=== PATIENT | male | born 1935 | race African-American/Black ===

== ENCOUNTER 2021-08-15 08:48 | Emergency (ER) | payer BC, MEDICARE, OTHER ==
[~2021-08-15] VITALS: Ht 175.3 cm; Wt 68.0 kg
[2021-08-15] MEDS ORDERED: CLONIDINE 0.1MG TABLET PO ONE (09:30)
[2021-08-15 10:18] LABS: EOSINOPHILS % 5.5 % (0.0-5.0); HEMATOCRIT. 30.1 % (42.0-52.0); HEMOGLOBIN. 9.8 g/dL (14.0-18.0); LYMPHOCYTES % 20.8 % (20.0-50.0); MEAN CORPUSCULAR HEMOGLOBIN 28.9 pg (28.0-32.0); MEAN PLATELET VOLUME 7.4 fl (7.4-10.4); MONOCYTES % 7.9 % (2.0-8.0); NEUTROPHILS % 64.8 % (40.0-76.0); PLATELET 234 x1000/uL (130-400); RED BLOOD CELL COUNT 3.39 mill/uL (4.7-6.1); RED CELL DISTRIBUTION WIDTH 14.7 % (11.6-14.6)
[2021-08-15 10:47] LABS: CHLORIDE 113 mEq/L (98-107)
[2021-08-15 11:59] VITALS: BP 186/74
== END 2021-08-15 11:50 | disposition home or self-care (01) ==
LOC: ER 08:48
DX: I10 Essential (primary) hypertension (principal); D64.9 Anemia, unspecified
CPT/HCPCS: 36415; 80053; 84484; 85025; 93005; 99285

== ENCOUNTER 2021-08-20 09:21 | Emergency (ER) | payer OTHER ==
[~2021-08-20] VITALS: Ht 175.3 cm; Wt 75.0 kg
[2021-08-20 10:25] LABS: BASOPHILS % 1.4 % (0.0-2.0); EOSINOPHILS % 4.9 % (0.0-5.0); HEMATOCRIT. 31.1 % (42.0-52.0); HEMOGLOBIN. 10.2 g/dL (14.0-18.0); LYMPHOCYTES % 20.3 % (20.0-50.0); MEAN CORPUSCULAR HEMOGLOBIN 29.1 pg (28.0-32.0); MEAN PLATELET VOLUME 7.8 fl (7.4-10.4); MONOCYTES % 6.4 % (2.0-8.0); PLATELET 243 x1000/uL (130-400); RED CELL DISTRIBUTION WIDTH 14.9 % (11.6-14.6)
[2021-08-20 10:31] LABS: CHLORIDE 110 mEq/L (98-107)
[2021-08-20] MEDS ORDERED: LOSARTAN POTASSIUM 100 MG TABLET PO SCH (12:30)
[2021-08-20] MEDS ORDERED: ONDANSETRON HCL 4MG/2ML INJ IV PRN (12:30)
[2021-08-20] MEDS ORDERED: HYDRALAZINE HCL 100MG TABLET PO NR (12:30)
[2021-08-20] MEDS ORDERED: ACETAMINOPHEN 325MG TABLET PO PRN (12:30)
[2021-08-20 14:40] VITALS: BP 154/76
[2021-08-20] MEDS ORDERED: HYDRALAZINE HCL 100MG TABLET PO SCH (21:00)
== END 2021-08-20 14:30 | disposition left against medical advice (07) ==
LOC: ER 09:21 → EDBEDREQTM 11:34 → EDBEDREQ 11:34 → CANRESERV 13:03 → ENRESERV 13:03 → ER 14:30 → CANBEDREQ 14:44
DX: I16.0 Hypertensive urgency (principal); G90.8 Other disorders of autonomic nervous system; E87.8 Other disorders of electrolyte and fluid balance, not elsewhere classified; D64.9 Anemia, unspecified; E78.00 Pure hypercholesterolemia, unspecified
CPT/HCPCS: 36415; 71045; 80053; 84484; 85025; 93005; 99285

== ENCOUNTER 2021-11-01 10:28 | Inpatient (IN) | payer OTHER ==
[~2021-11-01] VITALS: Ht 177.8 cm; Wt 64.0 kg
[~2021-11-01 10:28] MED LIST: AMLO10TA4 PO; ATOR80TA PO; HYDR-4134 PO
[2021-11-01] MEDS ORDERED: SODIUM CHLORIDE 0.9% 500 ML IV ONE (11:00)
[2021-11-01] MEDS ORDERED: HYDRALAZINE HCL 25MG TABLET PO ONE (11:45)
[2021-11-01] MEDS ORDERED: AMLODIPINE 10MG TABLET PO ONE (11:45)
[2021-11-01 12:38] LABS: BASOPHILS % 0.9 % (0.0-2.0); EOSINOPHILS % 1.2 % (0.0-5.0); HEMATOCRIT. 27.7 % (42.0-52.0); HEMOGLOBIN. 9.3 g/dL (14.0-18.0); LYMPHOCYTES % 25.2 % (20.0-50.0); MEAN CORPUSCULAR HEMOGLOBIN 28.9 pg (28.0-32.0); MEAN CORPUSCULAR VOLUME 86.2 fL (80.0-94.0); MEAN PLATELET VOLUME 7.8 fl (7.4-10.4); MONOCYTES % 8.3 % (2.0-8.0); NEUTROPHILS % 64.4 % (40.0-76.0); PLATELET 185 x1000/uL (130-400); RED BLOOD CELL COUNT 3.22 mill/uL (4.7-6.1); RED CELL DISTRIBUTION WIDTH 14.5 % (11.6-14.6)
[2021-11-01 12:45] LABS: CHLORIDE 114 mEq/L (98-107)
[2021-11-01] MEDS ORDERED: SODIUM CHLORIDE 0.9% 1,000 ML IV ONE (13:15)
[2021-11-01] MEDS ORDERED: ACETAMINOPHEN 325MG TABLET PO PRN (20:30)
[2021-11-01] MEDS ORDERED: DOCUSATE SODIUM 100MG CAPSULE PO PRN (20:30)
[2021-11-01] MEDS ORDERED: MAGNESIUM/ALUMINUM HYDROXIDE/SIMETHICONE 30ML UDC PO PRN (20:30)
[2021-11-01] MEDS ORDERED: GUAIFENESIN 200MG/10ML SUGAR FREE UDC PO PRN (20:30)
[2021-11-01] MEDS ORDERED: ONDANSETRON HCL 4MG/2ML INJ IV PRN (20:30)
[2021-11-01] MEDS ORDERED: ENOXAPARIN 40MG/0.4ML SYR SUBCUT SCH (21:00)
[2021-11-02 04:35] LABS: BASOPHILS % 1.2 % (0.0-2.0); EOSINOPHILS % 3.4 % (0.0-5.0); HEMATOCRIT. 25.4 % (42.0-52.0); HEMOGLOBIN. 8.4 g/dL (14.0-18.0); LYMPHOCYTES % 27.3 % (20.0-50.0); MEAN CORPUSCULAR HEMOGLOBIN 28.3 pg (28.0-32.0); MEAN CORPUSCULAR VOLUME 85.7 fL (80.0-94.0); MEAN PLATELET VOLUME 8.4 fl (7.4-10.4); MONOCYTES % 8.9 % (2.0-8.0); NEUTROPHILS % 59.2 % (40.0-76.0); PLATELET 175 x1000/uL (130-400); RED BLOOD CELL COUNT 2.96 mill/uL (4.7-6.1); RED CELL DISTRIBUTION WIDTH 14.5 % (11.6-14.6)
[2021-11-02 04:41] LABS: CHLORIDE 113 mEq/L (98-107)
[2021-11-02] MEDS: AMLODIPINE 10MG TABLET PO SCH (08:27)
[2021-11-02] MEDS ORDERED: ASPIRIN 81MG EC TABLET PO SCH (09:00)
[2021-11-02 09:40] VITALS: BP 149/83
[2021-11-02 09:50] VITALS: BP 149/83
[2021-11-02 12:00] VITALS: BP 171/81
[2021-11-02] MEDS: CLONIDINE 0.1MG TABLET PO PRN (12:58)
[2021-11-02] MEDS: SODIUM CHLORIDE 0.45% 1,000 ML IV SCH (15:03)
[2021-11-02 16:00] VITALS: BP 137/79
[2021-11-02 20:00] VITALS: BP 129/69
[2021-11-02] MEDS ORDERED: ENOXAPARIN 30MG/0.3ML SYR SUBCUT SCH (21:00)
[2021-11-02] MEDS ORDERED: ATORVASTATIN CALCIUM 40MG TABLET PO SCH (21:00)
[2021-11-03] VITALS: BP 128/69
[2021-11-03 04:00] VITALS: BP 148/80
[2021-11-03] MEDS: SODIUM CHLORIDE 0.45% 1,000 ML IV SCH (04:05)
[2021-11-03 08:00] VITALS: BP 151/79
[2021-11-03 09:04] LABS: BASOPHILS % 1.2 % (0.0-2.0); EOSINOPHILS % 3.8 % (0.0-5.0); HEMATOCRIT. 28.4 % (42.0-52.0); HEMOGLOBIN. 9.5 g/dL (14.0-18.0); LYMPHOCYTES % 24.3 % (20.0-50.0); MEAN CORPUSCULAR HEMOGLOBIN 28.7 pg (28.0-32.0); MEAN CORPUSCULAR VOLUME 86.2 fL (80.0-94.0); MONOCYTES % 8.5 % (2.0-8.0); NEUTROPHILS % 62.2 % (40.0-76.0); PLATELET 226 x1000/uL (130-400); RED CELL DISTRIBUTION WIDTH 14.2 % (11.6-14.6)
[2021-11-03 09:19] LABS: CHLORIDE 109 mEq/L (98-107)
[2021-11-03] MEDS: AMLODIPINE 10MG TABLET PO SCH (09:32)
[2021-11-03] MEDS: CLONIDINE 0.1MG TABLET PO PRN (09:34)
[2021-11-03 11:52] VITALS: BP 119/68
== END 2021-11-03 15:40 | disposition home or self-care (01) | DRG 683 ==
LOC: ER 10:28 → MICUSO 11-02 06:16 → 6WST 11-02 10:05 → 6EST 11-03 08:30
PROVIDERS: ADMIT Hospitalist; ATTEND Hospitalist
DX: N17.9 Acute kidney failure, unspecified (principal); C90.00 Multiple myeloma not having achieved remission; E87.0 Hyperosmolality and hypernatremia; E86.0 Dehydration; I12.9 Hypertensive chronic kidney disease with stage 1 through stage 4 chronic kidney disease, or unspecified chronic kidney disease; N18.9 Chronic kidney disease, unspecified; E78.5 Hyperlipidemia, unspecified; I27.20 Pulmonary hypertension, unspecified; D64.9 Anemia, unspecified; E87.5 Hyperkalemia; I35.0 Nonrheumatic aortic (valve) stenosis; Z82.49 Family history of ischemic heart disease and other diseases of the circulatory system; Z79.899 Other long term (current) drug therapy; Z82.3 Family history of stroke; R63.0 Anorexia; Z68.20 Body mass index [BMI] 20.0-20.9, adult
CPT/HCPCS: 36415; 71045; 80048; 80053; 83880; 84484; 85025; 93005; 97162; 97165; 99285; J1650; J7040

== ENCOUNTER 2022-05-02 12:56 | Inpatient (IN) | payer OTHER ==
[~2022-05-02] VITALS: Ht 180.3 cm; Wt 61.2 kg
[2022-05-02] MEDS ORDERED: MAGNESIUM/ALUMINUM HYDROXIDE/SIMETHICONE 30ML UDC PO STA (13:47)
[2022-05-02] MEDS ORDERED: DICYCLOMINE 10 MG/5 ML ORAL SYR PO STA (13:47)
[2022-05-02 14:43] LABS: HEMATOCRIT. 26.9 % (42.0-52.0); HEMOGLOBIN. 8.8 g/dL (14.0-18.0); MEAN CORPUSCULAR HEMOGLOBIN 28.5 pg (28.0-32.0); MEAN CORPUSCULAR VOLUME 86.7 fL (80.0-94.0); MEAN PLATELET VOLUME 7.6 fl (7.4-10.4); PLATELET 210 x1000/uL (130-400); RED CELL DISTRIBUTION WIDTH 15.5 % (11.6-14.6)
[2022-05-02 14:52] LABS: CHLORIDE 109 mEq/L (98-107)
[2022-05-02 15:30] LABS: PLATELET ESTIMATE NORMAL
[2022-05-02] MEDS ORDERED: PANTOPRAZOLE SODIUM 40 MG/VIAL IV ONE ×2 (16:00→20:00)
[2022-05-02] MEDS ORDERED: SODIUM CHLORIDE 0.9% 1,000 ML IV ONE (16:00)
[2022-05-02] MEDS ORDERED: DICYCLOMINE 10 MG/5 ML ORAL SYR PO NR (20:00)
[2022-05-02] MEDS ORDERED: PANTOPRAZOLE SODIUM 40 MG/VIAL IV NR (20:00)
[2022-05-02] MEDS ORDERED: MAGNESIUM/ALUMINUM HYDROXIDE/SIMETHICONE 30ML UDC PO NR (20:00)
[2022-05-02 21:30] VITALS: BP 172/74
[2022-05-02] MEDS ORDERED: HYDRALAZINE 20MG/ML VIAL IV PRN (23:15)
[2022-05-02] MEDS ORDERED: MAGNESIUM/ALUMINUM HYDROXIDE/SIMETHICONE 30ML UDC PO PRN (23:15)
[2022-05-02] MEDS ORDERED: ONDANSETRON HCL 4MG/2ML INJ IV PRN (23:15)
[2022-05-02] MEDS ORDERED: ACETAMINOPHEN 325MG TABLET PO PRN ×2 (23:15)
[2022-05-02] MEDS ORDERED: ZOLPIDEM TARTRATE 5MG TABLET PO PRN (23:15)
[2022-05-03] VITALS: BP 180/87
[2022-05-03] MEDS: SODIUM CHLORIDE 0.9% 1,000 ML IV SCH ×3 (00:32→21:50)
[2022-05-03 04:00] VITALS: BP 156/77
[2022-05-03 06:41] LABS: BASOPHILS % 0.4 % (0.0-2.0); EOSINOPHILS % 0.4 % (0.0-5.0); LYMPHOCYTES % 13.9 % (20.0-50.0); MEAN CORPUSCULAR VOLUME 86.8 fL (80.0-94.0); MEAN PLATELET VOLUME 8.3 fl (7.4-10.4); MONOCYTES % 5.4 % (2.0-8.0); NEUTROPHILS % 79.9 % (40.0-76.0); PLATELET 199 x1000/uL (130-400); RED BLOOD CELL COUNT 3.11 mill/uL (4.7-6.1); RED CELL DISTRIBUTION WIDTH 15.9 % (11.6-14.6)
[2022-05-03 06:50] LABS: CHLORIDE 107 mEq/L (98-107)
[2022-05-03 06:58] LABS: TOTAL IRON BINDING CAPACITY 260 ug/dL (250-450)
[2022-05-03 08:02] VITALS: BP 155/69
[2022-05-03] MEDS ORDERED: POTASSIUM CHLORIDE 20MEQ TABLET SR PO NR (08:30)
[2022-05-03] MEDS: PANTOPRAZOLE SODIUM 40 MG/VIAL IV SCH ×2 (09:38→21:43)
[2022-05-03] MEDS ORDERED: IRON SUCROSE COMPLEX 100 MG/5 ML ML IV SCH (12:00)
[2022-05-03 12:19] VITALS: BP 145/73
[2022-05-03 16:20] VITALS: BP 161/78
[2022-05-03 17:03] LABS: FOLIC ACID (FOLATE) SERUM 12.8 ng/mL (>5.38)
[2022-05-03] MEDS: CLONIDINE 0.1MG TABLET PO PRN (17:32)
[2022-05-03] MEDS ORDERED: MAGNESIUM 1 G PREMIX 100 ML IV NR (18:00)
[2022-05-03 20:00] VITALS: BP 133/76
[2022-05-04] VITALS: BP 166/67
[2022-05-04] MEDS: CLONIDINE 0.1MG TABLET PO PRN (00:35)
[2022-05-04 04:00] VITALS: BP 157/76
[2022-05-04] MEDS: SODIUM CHLORIDE 0.9% 1,000 ML IV SCH ×2 (07:30→12:54)
[2022-05-04 07:56] LABS: BASOPHILS % 0.4 % (0.0-2.0); EOSINOPHILS % 1.1 % (0.0-5.0); HEMOGLOBIN. 8.6 g/dL (14.0-18.0); LYMPHOCYTES % 17.2 % (20.0-50.0); MEAN CORPUSCULAR VOLUME 87.3 fL (80.0-94.0); MEAN PLATELET VOLUME 8.1 fl (7.4-10.4); MONOCYTES % 5.9 % (2.0-8.0); NEUTROPHILS % 75.4 % (40.0-76.0); PLATELET 194 x1000/uL (130-400); RED BLOOD CELL COUNT 2.98 mill/uL (4.7-6.1); RED CELL DISTRIBUTION WIDTH 15.6 % (11.6-14.6)
[2022-05-04 08:01] LABS: PROTHROMBIN TIME 11.1 sec (9.6-11.0)
[2022-05-04] MEDS: PANTOPRAZOLE SODIUM 40 MG/VIAL IV SCH ×3 (09:00→21:14)
[2022-05-04] MEDS ORDERED: CYANOCOBALAMIN 1000MCG/ML VIAL IM NR (10:30)
[2022-05-04] MEDS: IRON SUCROSE COMPLEX 100 MG/5 ML ML IV SCH (11:07)
[2022-05-04 20:00] VITALS: BP 156/66
[2022-05-05 00:21] VITALS: BP 147/71
[2022-05-05] MEDS: SODIUM CHLORIDE 0.9% 1,000 ML IV SCH ×2 (01:39→11:15)
[2022-05-05 04:00] VITALS: BP 159/77
[2022-05-05 08:00] VITALS: BP 149/72
[2022-05-05] MEDS: PANTOPRAZOLE SODIUM 40 MG/VIAL IV SCH ×3 (09:00→21:47)
[2022-05-05] MEDS: IRON SUCROSE COMPLEX 100 MG/5 ML ML IV SCH (10:03)
[2022-05-05 12:00] VITALS: BP 152/73
[2022-05-05 16:00] VITALS: BP 145/75
[2022-05-05 19:48] LABS: BASOPHILS % 0.5 % (0.0-2.0); EOSINOPHILS % 3.8 % (0.0-5.0); HEMATOCRIT. 24.6 % (42.0-52.0); HEMOGLOBIN. 7.9 g/dL (14.0-18.0); LYMPHOCYTES % 18.1 % (20.0-50.0); MEAN CORPUSCULAR HEMOGLOBIN 28.7 pg (28.0-32.0); MEAN CORPUSCULAR VOLUME 89.2 fL (80.0-94.0); MEAN PLATELET VOLUME 8.6 fl (7.4-10.4); MONOCYTES % 10.5 % (2.0-8.0); NEUTROPHILS % 67.1 % (40.0-76.0); PLATELET 174 x1000/uL (130-400); RED BLOOD CELL COUNT 2.76 mill/uL (4.7-6.1)
[2022-05-05 20:00] VITALS: BP 127/61
[2022-05-05 20:10] LABS: CHLORIDE 108 mEq/L (98-107)
[2022-05-06] VITALS: BP 150/63
[2022-05-06] MEDS: CLONIDINE 0.1MG TABLET PO PRN ×2 (03:39→08:49)
[2022-05-06 04:09] VITALS: BP 180/78
[2022-05-06 06:20] LABS: CHLORIDE 109 mEq/L (98-107)
[2022-05-06 06:30] LABS: BASOPHILS % 0.7 % (0.0-2.0); EOSINOPHILS % 4.2 % (0.0-5.0); HEMATOCRIT. 27.7 % (42.0-52.0); LYMPHOCYTES % 23.6 % (20.0-50.0); MEAN CORPUSCULAR HEMOGLOBIN 28.4 pg (28.0-32.0); MEAN CORPUSCULAR VOLUME 87.1 fL (80.0-94.0); MEAN PLATELET VOLUME 8.8 fl (7.4-10.4); MONOCYTES % 10.7 % (2.0-8.0); NEUTROPHILS % 60.8 % (40.0-76.0); PLATELET 194 x1000/uL (130-400); RED BLOOD CELL COUNT 3.18 mill/uL (4.7-6.1); RED CELL DISTRIBUTION WIDTH 15.8 % (11.6-14.6)
[2022-05-06 08:07] VITALS: BP 174/84
[2022-05-06] MEDS: PANTOPRAZOLE SODIUM 40 MG/VIAL IV SCH ×2 (08:49→20:41)
[2022-05-06] MEDS: IRON SUCROSE COMPLEX 100 MG/5 ML ML IV SCH (08:49)
[2022-05-06] MEDS: SODIUM CHLORIDE 0.9% 1,000 ML IV SCH ×2 (08:53→16:33)
[2022-05-06 12:30] VITALS: BP 150/64
[2022-05-06 15:10] VITALS: BP 150/64
[2022-05-06 16:28] VITALS: BP 123/69
== END 2022-05-06 21:15 | DRG 378 ==
LOC: ER 13:08 → 6WST 18:59 → EDBEDREQ 19:05 → ENRESERV 19:26
PROVIDERS: ADMIT Internal Medicine; ATTEND Internal Medicine
PROC: 30233N1 Transfusion of Nonautologous Red Blood Cells into Peripheral Vein, Percutaneous Approach (ICD-10-PCS; principal; 2022-05-05)
DX: K92.2 Gastrointestinal hemorrhage, unspecified (principal); N17.9 Acute kidney failure, unspecified; N40.0 Benign prostatic hyperplasia without lower urinary tract symptoms; K59.00 Constipation, unspecified; E87.6 Hypokalemia; K64.4 Residual hemorrhoidal skin tags; D50.9 Iron deficiency anemia, unspecified; I10 Essential (primary) hypertension; Z20.822 Contact with and (suspected) exposure to COVID-19; Z79.899 Other long term (current) drug therapy; Z79.82 Long term (current) use of aspirin; Z90.79 Acquired absence of other genital organ(s); Z87.891 Personal history of nicotine dependence
CPT/HCPCS: 36415; 71045; 80048; 80053; 82270; 82607; 82728; 82746; 82962; 83540; 83550; 83735; 85025; 85044; 87426; 93005; 97162; 97166; 99291; C9113; J0360; J2405; J3420; J3475; J7030